=== PATIENT | female | born 1985 | race Two or more races ===

== ENCOUNTER → 2024-02-06 | Outpatient (CLI) | payer OTHER ==
[2024-02-06 14:06] LABS: ALBUMIN 3.9 G/DL (3.2-5.2); ALKALINE PHOSPHATASE 88 U/L (46-116); ALT/SGPT 15 U/L (7.0-40); AST/SGOT 11 U/L (<34); BILIRUBIN,TOTAL 0.4 MG/DL (0.3-1.2); BLOOD UREA NITROGEN 11 MG/DL (9-23); CALCIUM LEVEL 9.7 MG/DL (8.5-10.1); CARBON DIOXIDE LEVEL 27 MMOL/L (20-31); CHLORIDE LEVEL 105 MMOL/L (98-107); CHOLESTEROL LEVEL 202 MG/DL (<200); CHOLESTEROL RISK RATIO 4.13 (<5); CREATININE FOR GFR 0.75 MG/DL (0.55-1.30); GLOMERULAR FILTRATION RATE > 60.0 (>60); GLUCOSE, FASTING 86 MG/DL (60-100); HDL CHOLESTEROL 48.8 MG/DL (>40); LDL CHOLESTEROL 122.8 MG/DL (<100); NON-HDL-C 153.2 MG/DL; POTASSIUM SERUM 4.3 MMOL/L (3.5-5.1); SODIUM LEVEL 140 MMOL/L (136-145); TOTAL PROTEIN 7.2 G/DL (5.7-8.2); TRIGLYCERIDES LEVEL 152 MG/DL (<150)
[2024-02-06 14:11] LABS: HCG, SERUM QUALITATIVE NEGATIVE (NEGATIVE)
== END ==
LOC: M PLALAB 09:59
PROVIDERS: ATTEND Physician Assistant
DX: L70.0 Acne vulgaris (principal); E78.00 Pure hypercholesterolemia, unspecified

== ENCOUNTER → 2024-05-05 | Outpatient (REF) | payer OTHER ==
[2024-05-05 18:36] LABS: ALBUMIN 3.9 G/DL (3.2-5.2); ALKALINE PHOSPHATASE 80 U/L (46-116); ALT/SGPT 15 U/L (7.0-40); AST/SGOT 15 U/L (<34); BILIRUBIN,TOTAL 0.3 MG/DL (0.3-1.2); BLOOD UREA NITROGEN 10 MG/DL (9-23); CALCIUM LEVEL 9.2 MG/DL (8.5-10.1); CARBON DIOXIDE LEVEL 30 MMOL/L (20-31); CHLORIDE LEVEL 108 MMOL/L (98-107); CHOLESTEROL LEVEL 177 MG/DL (<200); CHOLESTEROL RISK RATIO 4.49 (<5); CREATININE FOR GFR 0.79 MG/DL (0.55-1.30); GLOMERULAR FILTRATION RATE > 60.0 (>60); GLUCOSE, FASTING 90 MG/DL (60-100); HDL CHOLESTEROL 39.4 MG/DL (>40); LDL CHOLESTEROL 104.8 MG/DL (<100); NON-HDL-C 137.6 MG/DL; SODIUM LEVEL 139 MMOL/L (136-145); TOTAL PROTEIN 7.2 G/DL (5.7-8.2); TRIGLYCERIDES LEVEL 164 MG/DL (<150)
== END ==
LOC: M SFHCADAM 14:40
PROVIDERS: ATTEND Physician Assistant
DX: L70.0 Acne vulgaris (principal); Z79.899 Other long term (current) drug therapy